=== PATIENT | male | born 1940 | race Hispanic/Latino ===

== ENCOUNTER 2019-01-06 09:58 | Observation (INO) | payer MEDICARE ==
[2019-01-05 13:25] LABS: BASOPHILS % (AUTO) 1.1 % (0.0-5.0); EOSINOPHILS % (AUTO) 0.7 % (0.0-8.0); HEMATOCRIT 36.2 % (42-54); MEAN CORPUSCULAR HGB CONC 33.7 g/dL (32.0-36.0); MEAN CORPUSCULAR VOLUME 92.1 fL (79-99); MONOCYTES % (AUTO) 10.4 % (3.0-13.0); NEUTROPHILS % (AUTO) 62.8 % (40.0-77.0); NUCLEATED RED BLOOD CELLS 0.2 % (0.0-0.19); PLATELET COUNT (AUTO) 187 K/uL (130-400); RED BLOOD CELL COUNT(AUTO) 3.93 MIL/uL (4.50-6.20); RED CELL DISTRIBUTION WIDTH 12.7 % (11.0-15.5); WHITE BLOOD COUNT (AUTO) 5.9 K/uL (4.8-10.8)
[2019-01-05 13:35] LABS: CREATININE 0.7 mg/dL (0.5-1.5); POTASSIUM 4.5 mmol/L (3.5-5.1)
[2019-01-05 13:38] VITALS: BP 140/66
[2019-01-05 13:42] LABS: INR 0.99 (0.85-1.15); PARTIAL THROMBOPLASTIN TIME 22.5 SEC (26.3-35.5); PROTHROMBIN TIME 10.4 SEC (9.6-11.6)
[2019-01-05 14:17] LABS: APPEARANCE,URINE Clear (CLEAR); BILIRUBIN,URINE Negative (NEGATIVE); COLOR,URINE Dark Yellow (YELLOW); GLUCOSE, URINE (UA) 500 mg/dL (NEGATIVE); KETONES,URINE Trace mg/dL (NEGATIVE); LEUKOCYTE ESTERASE ,URINE Negative (NEGATIVE); NITRATE,URINE Negative (NEGATIVE); OCCULT BLOOD,URINE Negative (NEGATIVE); PROTEIN,URINE Negative (NEGATIVE)
[2019-01-05 14:47] LABS: BACTERIA,URINE Few /HPF (None Seen); RBC,URINE 0-1 /HPF (0-1)
[2019-01-05 14:48] LABS: HYALINE CASTS, URINE 0-1 /LPF (0-1 /LPF); MUCUS,URINE Moderate LPF (None Seen); SQUAMOUS EPITHELIAL CELL,UR Rare /HPF (0-2)
[~2019-01-06] VITALS: Ht 160 cm; Wt 67.4 kg
[2019-01-06] VITALS (8 sets, daily range): BP systolic 122–163; BP diastolic 63–89
[~2019-01-06 09:58] MED LIST: ATOR20TA65 PO; DONE5TAB33 PO; FERS325 PO; LINA1TAB PO; SODIUM CHLORIDE 0.9% 500ML 500 ML IV SCH
[2019-01-06] MEDS ORDERED: EPTIFIBATIDE 75MG/100ML BOTTLE 100 ML IV ONE ×2 (15:00→15:56)
[2019-01-06] MEDS ORDERED: NITROGLYCERIN 5 MG/ML 10 ML VIAL IV ONE (15:02)
[2019-01-06] MEDS ORDERED: IOHEXOL 350 MG/ML 100ML INFUS..BTL IV ONE (15:02)
[2019-01-06] MEDS ORDERED: BIVALIRUDIN 250 MG/VIAL IV ONE (15:02)
[2019-01-06] MEDS ORDERED: IOHEXOL-350 50ML VIAL IV ONE (15:02)
[2019-01-06] MEDS ORDERED: LIDOCAINE HCL 2% 20ML ONE (15:02)
[2019-01-06] MEDS ORDERED: EPTIFIBATIDE 2 MG/ML 10 ML VIAL IVP ONE (15:56)
[2019-01-06] MEDS ORDERED: HEPARIN SODIUM 1000UNIT/ML 10ML VIAL ONE (15:56)
[2019-01-06] MEDS ORDERED: IOHEXOL-350 75 ML VIAL IV ONE (16:08)
[2019-01-06] MEDS ORDERED: ATROPINE SULFATE 0.1 MG/ML 10 ML SYG IVP ONE (16:12)
[2019-01-06] MEDS ORDERED: CLOPIDOGREL BISULFATE 300 MG TAB ONE (16:20)
[2019-01-06] MEDS ORDERED: ASPIRIN 325MG EC TAB 325 MG TABLET.DR PO ONE (16:20)
[2019-01-06] MEDS ORDERED: SODIUM CHLORIDE 0.9% 1000ML 1,000 ML IV SCH (16:37)
[2019-01-06] MEDS ORDERED: PHARMACY COMMUNICATION MISC SCH (17:15)
--- NOTE | 2019-01-06 20:00 | NUR ---
Assumed care of patient after report received from Meme GUILLEN. Patient is alert and oriented x 3. No c/o pain, sob. VSS. Right groin soft, no hematoma. Lower extremities warm and pink. Pulses weak but palpable. Call light and needed items placed readily at hand. Encouraged to call prn. No family in room. Comfort measures done.
[2019-01-06] MEDS ORDERED: ATORVASTATIN CALCIUM 20 MG TABLET PO SCH (21:00)
[2019-01-06] MEDS ORDERED: DONEPEZIL HCL 5 MG TAB PO SCH (21:00)
[2019-01-06] MEDS ORDERED: DEXTROSE 50%-WATER 50 ML DISP.SYRIN IV PRN (22:00)
[2019-01-06] MEDS ORDERED: GLUCAGON 1MG KIT 1 MG ML IM PRN (22:00)
--- NOTE | 2019-01-07 | NUR ---
Integrilin infused and dose completed. NS continues to infuse at 80 mls/hr into patent left arm IV until AM. Neuro v/s remain stable.
[2019-01-07 00:02] VITALS: BP 121/58
[2019-01-07 03:34] LABS: HEMATOCRIT 33.6 % (42-54); MEAN CORPUSCULAR HEMOGLOBIN 31.9 pg (27.0-33.0); MEAN CORPUSCULAR HGB CONC 34.9 g/dL (32.0-36.0); MEAN CORPUSCULAR VOLUME 91.5 fL (79-99); PLATELET COUNT (AUTO) 168 K/uL (130-400); RED BLOOD CELL COUNT(AUTO) 3.68 MIL/uL (4.50-6.20); RED CELL DISTRIBUTION WIDTH 13.1 % (11.0-15.5); WHITE BLOOD COUNT (AUTO) 4.5 K/uL (4.8-10.8)
[2019-01-07 03:42] VITALS: BP 133/53
[2019-01-07 03:45] LABS: CREATININE 0.7 mg/dL (0.5-1.5)
[2019-01-07 07:00] VITALS: BP 124/66
--- NOTE | 2019-01-07 07:27 | NUR ---
Normal saline discontinued after 10 hours as ordered. Right groin dressing changed. 12 lead EKG done earlier. Continues to void well per urinal. Status unchanged. Call light and needed items readily at hand. Encouraged to call prn.
[2019-01-07] MEDS ORDERED: INSULIN HUMULIN R 100 UNIT/ML 3ML SQ SCH (07:30)
[2019-01-07] MEDS ORDERED: ASPIRIN 81MG TAB.CHEW PO SCH (09:00)
[2019-01-07] MEDS ORDERED: CLOPIDOGREL BISULFATE 75 MG TAB PO SCH (09:00)
[2019-01-07] MEDS ORDERED: FERROUS SULFATE 325 MG TABLET.DR PO SCH (09:00)
[2019-01-07 11:21] VITALS: BP 110/53
== END 2019-01-07 11:50 | disposition home or self-care (01) ==
LOC: DAH 09:58 → 2BH 09:59
PROVIDERS: ADMIT Internal Medicine Cardiovascular Disease; ATTEND Internal Medicine Cardiovascular Disease
DX: I35.0 Nonrheumatic aortic (valve) stenosis (principal); R55 Syncope and collapse; E78.5 Hyperlipidemia, unspecified; I12.9 Hypertensive chronic kidney disease with stage 1 through stage 4 chronic kidney disease, or unspecified chronic kidney disease; N18.2 Chronic kidney disease, stage 2 (mild); G30.9 Alzheimer's disease, unspecified; F02.80 Dementia in other diseases classified elsewhere, unspecified severity, without behavioral disturbance, psychotic disturbance, mood disturbance, and anxiety; Z83.3 Family history of diabetes mellitus; Z87.891 Personal history of nicotine dependence; Z79.899 Other long term (current) drug therapy
CPT/HCPCS: 36415 ×3; 71045; 80048 ×2; 80061; 81001; 82948 ×3; 83880; 85025; 85027; 85610; 85730; 93005 ×3; 93454; A4606; C1725 ×2; C1760; C1769; C1874 ×2; C1887 ×2; C1894; C9600 ×2; G0378 ×26; J1327 ×2; J1644 ×2; J1815; J3490 ×2; Q9965; Q9967 ×3; J0461; J0583